=== PATIENT | male | born 1955 | race Caucasian/White ===

== ENCOUNTER 2016-10-15 08:56 | Emergency (ER) | payer BC ==
[2016-10-15] MEDS ORDERED: Sodium Chloride 0.9% 10 ML Syringe FLUSH PRN (09:34)
[2016-10-15] MEDS ORDERED: Ondansetron 4 MG/2 ML SDV IVPUSH ONE (09:43)
[2016-10-15] MEDS ORDERED: HYDROmorphone 0.5 MG/0.5 ML Syringe IVPUSH ONE (09:43)
[2016-10-15] MEDS ORDERED: Labetalol 100 MG/20 ML MDV IVPUSH ONE ×2 (09:43→10:04)
--- NOTE | 2016-10-15 11:08 | US ---
Abdominal aortic ultrasound: Multiple real-time images of the abdominal aorta were obtained. Aorta shows no aneurysmal dilatation. AP dimension proximally is 2.7 cm, mid aorta has an AP dimension of 1.7 cm and distal aorta has an AP dimension of 2.0 cm. Right common iliac artery measures up to 1.8 cm and left common iliac artery measures up to 1.9 cm. Prostate gland is noted to be mildly enlarged. Bladder at the beginning of the exam had a volume of 1405 mL with Enrique catheter being placed and bladder volume diminishing during the exam. Impression: 1. Urine dilated bladder at the beginning of the exam. Placement of a Enrique catheter is noted with good emptying of the bladder being seen by the termination of the exam. 2. No abdominal aortic aneurysm is seen. Diagnostic code #3
--- NOTE | 2016-10-15 11:25 | EDM.PDOC ---
ED HPI GENERAL MEDICAL PROBLEM - General Chief Complaint: Back Pain or Injury Stated Complaint: FLANK PAIN Time Seen by Provider: 10/15/16 09:34 Source of Information: Reports: Patient, RN Notes Reviewed - History of Present Illness INITIAL COMMENTS - FREE TEXT/NARRATIVE: 61-year-old gentleman comes in with lower abdominal and pelvic discomfort. He states this started a day or 2 ago and has become worse during the night and especially this morning. He has had mild intermittent low backache for the past week or 2. Fall or injury. No fever chills nausea or vomiting. When later asked he does admit to some of voiding difficulty.. Bilateral Lower Back Pain Score (Numeric/FACES): 7 Penis Pain Score (Numeric/FACES): 3 - Related Data Allergies Allergy/AdvReac Type Severity Reaction Status Date / Time No Known Allergies Allergy Verified 10/15/16 09:03 Home Meds: Home Meds Lisinopril 10 mg PO DAILY #30 tablet 10/15/16 [Rx] Potassium Chloride 10 meq PO DAILY #20 tablet.er 10/15/16 [Rx] Past Medical History Cardiovascular History: Reports: High Cholesterol, Hypertension Other Dermatologic History: skin CA on face Social & Family History - Tobacco Use Smoking Status *Q: Never Smoker Second Hand Smoke Exposure: No - Caffeine Use Caffeine Use: Reports: None - Recreational Drug Use Recreational Drug Use: No ED ROS GENERAL - Review of Systems Review Of Systems: See Below Constitutional: Denies: Fever, Chills HEENT: Denies: Throat Pain Respiratory: Denies: Shortness of Breath, Pleuritic Chest Pain Cardiovascular: Denies: Chest Pain GI/Abdominal: Reports: Abdominal Pain (Fluoroscopy abdominal and pelvic), Nausea. Denies: Diarrhea, Vomiting (Mild,:) : Reports: Frequency, Urgency, Urinary Retention (Possible) Musculoskeletal: Reports: Back Pain (Low back) Skin: Reports: No Symptoms Neurological: Reports: No Symptoms ED EXAM, RENAL/ - Physical Exam Exam: See Below General Appearance: Alert, Mild Distress Throat/Mouth: Normal Inspection, Normal Oropharynx Head: Atraumatic. No: Facial Swelling Neck: Supple, Full Range of Motion Respiratory/Chest: Lungs Clear, Normal Breath Sounds Cardiovascular: Regular Rate, Rhythm GI/Abdominal: Distended (Lower abdomen), Tender (Lower mid abdomen). No: Guarding, Rebound Back Exam: No: CVA Tenderness (L), CVA Tenderness (R), Paraspinal Tenderness, Vertebral Tenderness Extremities: No: Pedal Edema, Leg Pain Course - Vital Signs Last Recorded V/S: Last Vital Signs Temp 97.4 F 10/15/16 09:03 Pulse 73 10/15/16 11:55 Resp 12 10/15/16 11:55 BP 161/104 H 10/15/16 11:55 Pulse Ox 97 10/15/16 11:55 - Orders/Labs/Meds Orders: Active Orders 24 hr Category Date Time Status EKG 12 Lead [EKG Documentation Completion] [RC] URGENT Care 10/15/16 09:23 Active Insert Urinary Catheter [OM.PC] Q24H Care 10/15/16 10:00 Ordered Peripheral IV Care [] . DIRECTED Care 10/15/16 09:35 Active Urinary Catheter Assessment [] ASDIRECTED Care 10/15/16 11:55 Active Sodium Chloride 0.9% [Saline Flush] Med 10/15/16 09:34 Active 10 ml FLUSH ASDIRECTED PRN Peripheral IV Insertion Adult [OM.PC] Stat Oth 10/15/16 09:35 Ordered Medication Orders Sodium Chloride (Saline Flush) 10 ml FLUSH ASDIRECTED PRN PRN Reason: Keep Vein Open Last Admin: 10/15/16 09:53 Dose: 10 ml Labs: Laboratory Tests 10/15/16 10/15/16 10/15/16 Range/Units 09:10 09:10 09:20 WBC 8.13 (4.23-9.07) K/mm3 RBC 5.12 (4.63-6.08) M/mm3 Hgb 14.6 (13.7-17.5) gm/L Hct 42.0 (40.1-51.0) % MCV 82.0 (79.0-92.2) fl MCH 28.5 (25.7-32.2) pg MCHC 34.8 (32.2-35.5) g/dl RDW Std Deviation 36.7 (35.1-43.9) fL Plt Count 257 (163-337) K/mm3 MPV 10.3 (9.4-12.3) fl Neut % (Auto) 68.7 H (34.0-67.9) % Lymph % (Auto) 20.5 L (21.8-53.1) % [place] % (Auto) 7.5 (5.3-12.2) % Eos % (Auto) 2.2 (0.8-7.0) Baso % (Auto) 0.5 (0.1-1.2) % Neut # (Auto) 5.58 H (1.78-5.38) K/mm3 Lymph # (Auto) 1.67 (1.32-3.57) K/mm3 [place]christ # (Auto) 0.61 (0.30-0.82) K/mm3 Eos # (Auto) 0.18 (0.04-0.54) K/mm3 Baso # (Auto) 0.04 (0.01-0.08) K/mm3 Manual Slide Review Normal smear Sodium 138 (136-145) mEq/L Potassium 3.0 L (3.5-5.1) mEq/L Chloride 101 (98-107) mEq/L Carbon Dioxide 24 (21-32) mEq/L Anion Gap 16.0 H (5-15) BUN 21 H (7-18) mg/dL Creatinine 1.4 H (0.7-1.3) mg/dL Est Cr Clr Drug Dosing 54.01 mL/min Estimated GFR (MDRD) 51 (>60) mL/min BUN/Creatinine Ratio 15.0 (14-18) Glucose 289 H (80-115) mg/dL Calcium 9.3 (8.5-10.1) mg/dL Total Bilirubin 0.8 (0.2-1.0) mg/dL AST 15 (15-37) U/L ALT 41 (16-63) U/L Alkaline Phosphatase 129 H (46-116) U/L Total Protein 8.4 H (6.4-8.2) g/dl Albumin 4.2 (3.4-5.0) g/dl Globulin 4.2 gm/dL Albumin/Globulin Ratio 1.0 (1-2) Urine Color Light yellow (Yellow) Urine Appearance Clear (Clear) Urine pH 6.0 (5.0-8.0) Ur Specific [place] 1.015 (1.005-1.030) Urine Protein 1+ H (Negative) Urine Glucose (UA) 2+ H (Negative) Urine Ketones Negative (Negative) Urine Occult Blood Trace-lysed H (Negative) Urine Nitrite Negative (Negative) Urine Bilirubin Negative (Negative) Urine Urobilinogen 0.2 (0.2-1.0) Ur Leukocyte Esterase Negative (Negative) Urine RBC 0-5 (0-5) /hpf Urine WBC 0-5 (0-5) /hpf Ur Epithelial Cells Not seen (0-5) /hpf Urine Bacteria Few (FEW) /hpf Urine Mucus Not seen (FEW) /hpf Meds: Medications Generic Name Dose Route Start Last Admin Trade Name Frecandis PRN Reason Stop Dose Admin Sodium Chloride 10 ml 10/15/16 09:34 10/15/16 09:53 Saline Flush FLUSH 10 ml ASDIRECTED PRN Administration Keep Vein Open Discontinued Medications Generic Name Dose Route Start Last Admin Trade Name Nancy PRN Reason Stop Dose Admin Acetaminophen 975 mg 10/15/16 11:39 10/15/16 11:45 Tylenol PO 10/15/16 11:40 975 mg NOW ONE Administration Hydromorphone HCl 0.5 mg 10/15/16 09:43 10/15/16 09:52 Dilaudid IVPUSH 10/15/16 09:44 0.5 mg ONETIME ONE Administration Labetalol HCl 20 mg 10/15/16 09:43 10/15/16 09:54 Normodyne IVPUSH 10/15/16 09:44 20 mg ONETIME ONE Administration Protocol Labetalol HCl 20 mg 10/15/16 10:04 10/15/16 10:13 Normodyne IVPUSH 10/15/16 10:05 20 mg ONETIME ONE Administration Protocol Lisinopril 10 mg 10/15/16 11:28 10/15/16 11:37 Prinivil PO 10/15/16 11:29 10 mg ONETIME ONE Administration Ondansetron HCl 4 mg 10/15/16 09:43 10/15/16 09:50 Zofran IVPUSH 10/15/16 09:44 4 mg ONETIME ONE Administration Potassium Chloride 40 meq 10/15/16 11:28 10/15/16 11:38 Klor-Con M20 PO 10/15/16 11:29 40 meq ONETIME ONE Administration - Re-Assessments/Exams Free Text/Narrative Re-Assessment/Exam: 10/15/16 12:12 Patient's blood pressure was very elevated on arrival in the 220/120 range. He was in a lot of distress as well. Given 2 doses of labetalol 20 mg IV. Ultrasound did show urinary retention of around 1400 mL. Therefore Enrique catheter was placed. He did get great relief of his discomfort and distention with the Enrique catheter placement. We did ultrasound to check for aortic aneurysm and there was no evidence for aneurysm at this time. Potassium came back quite low at 3.0. He was given 40 mEq by mouth. I'm going to start him on lisinopril 10 mg daily to begin treatment of his untreated hypertension. Discharge instructions as documented. He is allowed to go home with Enrique catheter in place with a leg bag with instructions to have that removed in about 2 days. Departure - Departure Time of Disposition: 11:29 Disposition: Home, Self-Care 01 Condition: Fair Clinical Impression: Urinary retention, Hypokalemia Hypertension Qualifiers: Hypertension type: essential hypertension Qualified Code(s): I10 - Essential ( primary) hypertension - Discharge Information Prescriptions: Lisinopril 10 mg PO DAILY #30 tablet Potassium Chloride 10 meq PO DAILY #20 tablet.er Instructions: Acute Urinary Retention, Male, [id number], Hypertension Referrals: PCP,None [Primary Care Provider] - Forms: ED Department Discharge Additional Instructions: Enrique catheter for the next 2 days, use a leg bag, empty frequently as needed. Drink Plenty of water to maintain hydration. Your potassium was low today. Eat plenty of fruit and vegetables, bananas are a very good source of potassium. Oral potassium supplement 10 mEq daily, prescription provided. You can fill that tomorrow. Your blood pressure was very high today. Start lisinopril 10 mg daily. You have been given your first dose here in the ED for today. Fill that prescription tomorrow and continue that daily unless otherwise directed. Tylenol every 6-8 hours as needed for discomfort. You may take hydrocodone, a stronger pain medication if needed for severe pain. Do not take Tylenol and hydrocodone at the same time, do not drive when taking hydrocodone. Call [facility] tomorrow morning for appointment to see provider to have a Enrique catheter removed 2 days from now. On ultrasound your prostate was noted to be very enlarged which is what is causing your urinary retention. Ask for referral to see Urologist at time of your clinic appointment. Return to ED as needed. - My Orders Last 24 Hours: My Active Orders 10/15/16 09:23 EKG 12 Lead [EKG Documentation Completion] [RC] URGENT 10/15/16 09:34 Sodium Chloride 0.9% [Saline Flush] 10 ml FLUSH ASDIRECTED PRN 10/15/16 09:35 Peripheral IV Care [RC] . DIRECTED Peripheral IV Insertion Adult [OM.PC] Stat 10/15/16 10:00 Insert Urinary Catheter [OM.PC] Q24H 10/15/16 11:55 Urinary Catheter Assessment [RC] ASDIRECTED - Assessment/Plan Last 24 Hours: My Active Orders 10/15/16 09:23 EKG 12 Lead [EKG Documentation Completion] [RC] URGENT 10/15/16 09:34 Sodium Chloride 0.9% [Saline Flush] 10 ml FLUSH ASDIRECTED PRN 10/15/16 09:35 Peripheral IV Care [RC] . DIRECTED Peripheral IV Insertion Adult [OM.PC] Stat 10/15/16 10:00 Insert Urinary Catheter [OM.PC] Q24H 10/15/16 11:55 Urinary Catheter Assessment [RC] ASDIRECTED
[2016-10-15] MEDS ORDERED: Lisinopril 10 MG Tab PO ONE (11:28)
[2016-10-15] MEDS ORDERED: Potassium Chloride 20 MEQ Tab.ER PO ONE (11:28)
[2016-10-15] MEDS ORDERED: Acetaminophen 325 MG Tab PO ONE (11:39)
[2016-10-15 12:06] VITALS: BP 161/104
== END 2016-10-15 12:09 | disposition home or self-care (01) ==
LOC: JD.ED 08:56
DX: E87.6 Hypokalemia (principal); I10 Essential (primary) hypertension; R33.9 Retention of urine, unspecified; E78.00 Pure hypercholesterolemia, unspecified
CPT/HCPCS: 36415; 51702; 76706; 80053; 81001; 85025; 93005; 96374; 96375; 99284; A9270; J1170; J2405; J7050; 76770; 76770-26